=== PATIENT | female | born 1950 | race African-American/Black ===

== ENCOUNTER 2019-10-27 11:10 | Outpatient (CLI) | payer MEDICARE, SELFPAY ==
[2019-10-27 11:32] LABS: Hematocrit 36.3 % (37.0-47.0); Hemoglobin 11.5 g/dL (12.0-15.0)
[2019-10-27 11:41] LABS: Hemoglobin A1C 7.3 % (<5.7)
[2019-10-27 11:45] LABS: Albumin Level 4.3 g/dL (3.5-5.1); Estimated Glomerular Filt Rate 60; Glucose 107 mg/dL (65-105)
== END 2019-10-27 11:11 | disposition home or self-care (01) ==
LOC: ANHLAB 11:17
PROVIDERS: Visit Provider Orthopaedic Surgery
DX: Z01.818 Encounter for other preprocedural examination (principal); M17.11 Unilateral primary osteoarthritis, right knee
CPT/HCPCS: 36415; 82040; 82565; 82947; 83036; 85014; 85018

== ENCOUNTER 2020-03-29 14:02 | Outpatient (CLI) | payer MEDICARE, SELFPAY ==
[2020-03-29 15:29] LABS: Basophils Absolute Auto 0.1 K/mm3 (0.0-0.1); Eosinophils Absolute Auto 0.2 K/mm3 (0-0.3); Eosinophils Percent Auto 3.6 % (0-4.4); Hematocrit 34.7 % (37.0-47.0); Hemoglobin 10.9 g/dL (12.0-15.0); Immature Granulocyte Absolute 0.02 K/mm3 (0.00-0.031); Immature Granulocyte Percent A 0.3 % (0-0.5); Lymphocytes Absolute Auto 2.11 K/mm3 (0.9-3.2); Lymphocytes Percent Auto 34.4 % (18.3-44.2); Mean Corpuscular HGB Conc 31.4 g/dl (32-36); Mean Corpuscular Hemoglobin 31.8 pg (26-34); Mean Corpuscular Volume 101.2 fl (80-100); Mean Platelet Volume 9.9 fl (7.4-10.4); Monocytes Absolute Auto 0.5 K/mm3 (0.1-0.6); Monocytes Percent Auto 8.8 % (2.6-8.5); Neutrophils Absolute Auto 3.2 K/mm3 (1.3-6.7); Neutrophils Percent Auto 51.9 % (45.5-73.1); Platelet Count Result 377 k/mm3 (150-375); Red Blood Count 3.43 M/mm3 (4.2-5.4); Red Cell Distribution Width 13.4 % (11.5-14.5); White Blood Count 6.1 K/mm3 (4.5-10.0)
[2020-03-29 15:40] LABS: Albumin Level 4.2 g/dL (3.5-5.1); Urine Cotinine NEGATIVE
[2020-03-29 15:44] LABS: Blood Urea Nitrogen 15 mg/dL (7-17); Calcium 9.3 mg/dL (8.4-10.2); Carbon Dioxide 27 mmol/L (22-30); Chloride 106 mmol/L (98-107); Estimated Glomerular Filt Rate > 60; Glucose 96 mg/dL (65-105); Hemoglobin A1C 7.3 % (<5.7); Potassium 4.1 mmol/L (3.4-5.0); Sodium 140 mmol/L (137-145)
== END 2020-03-29 14:03 | disposition home or self-care (01) ==
LOC: ANHSURGERY 14:06
PROVIDERS: Anesthesiology; PCP Family Medicine; Visit Provider Orthopaedic Surgery
DX: Z01.818 Encounter for other preprocedural examination (principal); M17.11 Unilateral primary osteoarthritis, right knee; E11.9 Type 2 diabetes mellitus without complications
CPT/HCPCS: 36415; 80048; 80307; 82040; 83036; 85025; 87081

== ENCOUNTER 2020-04-28 01:33 | Outpatient (CLI) | payer MEDICARE, SELFPAY ==
[2020-04-28 18:01] LABS: SARS-CoV-2 RNA PCR Negative
== END 2020-04-28 01:34 | disposition home or self-care (01) ==
LOC: ANHCOVIDDT 01:33
PROVIDERS: PCP Family Medicine; Visit Provider Orthopaedic Surgery
DX: Z01.812 Encounter for preprocedural laboratory examination (principal); Z20.828 Contact with and (suspected) exposure to other viral communicable diseases
CPT/HCPCS: 87635; C9803; U0003

== ENCOUNTER 2020-05-01 03:40 | Day surgery (SDC) | payer MEDICARE, SELFPAY ==
[2020-03-29 14:17] VITALS: BP 166/92; PULSE 84; RESP 20; TEMP 37; O2SAT 99; BMI 30.9
--- NOTE | 2020-04-30 13:58 | WPDANESEPPF ---
Anes - Initial Pre Proc Eval Procedure: Operation Date: 05/01/20 13:30 Proposed Procedures p Right Total Knee Arthroplasty - Ori Griffiths MD Date/Time: 04/30/20 13:58 Surgeon: Ori Griffiths MD Pre Op Diagnosis: OA Right Knee Patient Data Age: 69 Gender: F Height: 1.74 m Weight: 93.5 kg Last Vital Signs Temp 37.0 C 03/29/20 14:17 Pulse 84 03/29/20 14:17 Resp 20 03/29/20 14:17 BP 166/92 H 03/29/20 14:17 Pulse Ox 99 03/29/20 14:17 Allergies Allergy/AdvReac Type Severity Reaction Status Date / Time VANE Inhibitors Allergy Unknown Cough Verified 03/29/20 14:33 Home Medications Medication Instructions Recorded Confirmed Type acetaminophen 325 mg tablet 650 mg PO Q6H PRN 09/19/19 04/23/20 History ascorbate calcium (vitamin C) 500 1,000 mg PO BID 09/19/19 04/23/20 History mg tablet baclofen 10 mg tablet 10 mg PO DAILY 09/19/19 04/23/20 History cholecalciferol (vitamin D3) 50 2,000 unit PO DAILY 09/19/19 04/23/20 History mcg (2,000 unit) tablet fluticasone propionate 50 1 spray NASAL DAILY 09/19/19 04/23/20 History mcg/actuation nasal spray,suspension gabapentin 600 mg tablet 600 mg PO TID 09/19/19 04/23/20 History ketoconazole 2 % topical cream 1 applic TOPICAL DAILY 09/19/19 04/23/20 History linagliptin 5 mg tablet 5 mg PO QAM 09/19/19 04/23/20 History meloxicam 15 mg tablet 15 mg PO DAILY 09/19/19 04/23/20 History metformin 1,000 mg tablet,extended 1,000 mg PO HS 09/19/19 04/23/20 History release 24hr montelukast 10 mg tablet 10 mg PO DAILY 09/19/19 04/23/20 History multivitamin 1 cap PO DAILY 09/19/19 04/23/20 History olmesartan 40 1 tablet PO DAILY 09/19/19 04/23/20 History mg-hydrochlorothiazide 25 mg tablet turmeric root extract 500 mg 500 mg PO BID 09/19/19 04/23/20 History capsule vitamin B complex 1 tablet PO DAILY 09/19/19 04/23/20 History calcium wme-qvc-S8-Zn-telescope repairer-jarno 1 tablet PO DAILY 03/29/20 04/23/20 History insulin detemir U-100 [Levemir 35 unit SUBCUT HS 03/29/20 04/23/20 History FlexTouch U-100 Insuln] magnesium 966 mg PO DAILY 03/29/20 04/23/20 History metoprolol succinate 50 mg PO DAILY 03/29/20 04/23/20 History omeprazole 20 mg PO DAILY 03/29/20 04/23/20 History rosuvastatin 20 mg PO HS 03/29/20 04/23/20 History PMFSH Past Medical History Medical History (Updated 04/30/20 @ 14:00 by Jake Alberto MD) Arthritis Back pain Diabetes Gastroesophageal reflux disease Hypercholesterolemia Hypertension Obesity JEANNE (obstructive sleep apnea) Osteoarthritis of right knee Surgical History Surgical History H/O section (~1981) Social History Social History Smoking status: Never smoker Alcohol intake: current Substance use: current Substance use type: marijuana Other substance usage details: OCCASIONALLY ONE HIT IN THE AM Spiritual care concerns: No Anes - Eval Final PreProcedure Day of Procedure 04/30/20 13:58 Patient weight: obese Heart: regular rate and rhythm Lungs: clear to auscultation and normal air movement Airway: Mallampati scale class II Neurological: alert and oriented Last oral intake: >/= 8 hours ASA classification: III Emergent: no Anesthetic plan: proceed Anesthesia type and monitoring: general LMA Informed Consent: The patient's anesthetic plan and its attendant risks and benefits were discussed with the patient/family/POA. Questions were solicited and answers provided to the satisfaction of the patient/family/POA.
[2020-05-01] VITALS (11 sets, daily range): BP systolic 124–163; BP diastolic 63–88; PULSE 80–99; RESP 10–18; TEMP 35.9–37; O2SAT 98–100
--- NOTE | ~2020-05-01 | XR_ITS ---
EXAMINATION: XR knee RT 2V DATE: 05/01/2020 16:19 INDICATION: Postoperative evaluation following right total knee arthroplasty. TECHNIQUE: Anteroposterior and lateral views of the right knee were obtained. COMPARISON: None. FINDINGS: Right total knee arthroplasty with patellar resurfacing appears well seated and in near anatomic alig nment. No fractures identified. Expected postoperative subcutaneous and intra-articular gas. IMPRESSION: 1. Right total knee arthroplasty, negative for postoperative purposes. Reviewed, dictated and finalized at location A.
--- NOTE | 2020-05-01 07:18 | WPDHPUPDATE1 ---
History and Physical Update Update Date/Time: 05/01/20 07:18 History and Physical has been reviewed, including an updated exam of the patient. There are NO changes in the patient's condition. Risks, benefits, and alternatives have been discussed and questions answered. Patient agrees to proceed with procedure.
[2020-05-01] MEDS: LACTATED RINGERS 1,000 ML 30 ML IV CONT (12:25)
[2020-05-01 12:27] LABS: Glucose Point of Care 117 (65-105)
[2020-05-01] MEDS: ACETAMINOPHEN 500 MG TABLET 1000 MG PO (12:45)
[2020-05-01] MEDS: KETOROLAC 15 MG/ML VIAL (*BKC) IV PUSH (12:47)
--- NOTE | 2020-05-01 13:23 | WPDANESEPPF ---
Anes - Initial Pre Proc Eval Procedure: Operation Date: 05/01/20 13:30 Proposed Procedures p Right Total Knee Arthroplasty - Ori Griffiths MD Date/Time: 05/01/20 13:23 Surgeon: Ori Griffiths MD Pre Op Diagnosis: OA Right Knee Patient Data Age: 69 Gender: F Height: 5 ft 8.5 in Weight: 89.6 kg Last Vital Signs Temp 36.2 C L 05/01/20 12:34 Pulse 80 05/01/20 12:34 Resp 12 05/01/20 12:34 BP 124/69 05/01/20 12:34 Pulse Ox 100 05/01/20 12:34 Allergies Allergy/AdvReac Type Severity Reaction Status Date / Time VANE Inhibitors Allergy Unknown Cough Verified 05/01/20 12:04 Home Medications Medication Instructions Recorded Confirmed Type ascorbate calcium (vitamin C) 500 1,000 mg PO DAILY 09/19/19 05/01/20 History mg tablet baclofen 10 mg tablet 10 mg PO DAILY 09/19/19 05/01/20 History cholecalciferol (vitamin D3) 50 2,000 unit PO DAILY 09/19/19 05/01/20 History mcg (2,000 unit) tablet fluticasone propionate 50 1 spray NASAL PRN 09/19/19 05/01/20 History mcg/actuation nasal spray,suspension gabapentin 600 mg tablet 600 mg PO TID 09/19/19 05/01/20 History ketoconazole 2 % topical cream 1 applic TOPICAL DAILY 09/19/19 05/01/20 History linagliptin 5 mg tablet 5 mg PO QAM 09/19/19 05/01/20 History meloxicam 15 mg tablet 15 mg PO DAILY 09/19/19 05/01/20 History metformin 1,000 mg tablet,extended 2,000 mg PO HS 09/19/19 05/01/20 History release 24hr montelukast 10 mg tablet 10 mg PO DAILY 09/19/19 05/01/20 History multivitamin 1 cap PO DAILY 09/19/19 05/01/20 History olmesartan 40 1 tablet PO DAILY 09/19/19 05/01/20 History mg-hydrochlorothiazide 25 mg tablet turmeric root extract 500 mg 500 mg PO BID 09/19/19 05/01/20 History capsule vitamin B complex 1 tablet PO DAILY 09/19/19 05/01/20 History calcium hsr-teg-B1-Zn-advertising copywriter-jaron 1 tablet PO DAILY 03/29/20 05/01/20 History insulin detemir U-100 [Levemir 35 unit SUBCUT HS 03/29/20 05/01/20 History FlexTouch U-100 Insuln] magnesium 966 mg PO DAILY 03/29/20 05/01/20 History metoprolol succinate 50 mg PO DAILY 03/29/20 05/01/20 History omeprazole 20 mg PO DAILY 03/29/20 05/01/20 History rosuvastatin 20 mg PO HS 03/29/20 05/01/20 History Laboratory Tests 05/01/20 12:25 POC Capillary Glucose 117 mg/dl H mg/dl (65-105) Patient hx anesthesia problems: none Family hx anesthesia problems: none PMFSH Past Medical History Medical History Arthritis Back pain Diabetes Gastroesophageal reflux disease Hypercholesterolemia Hypertension Obesity JEANNE (obstructive sleep apnea) Osteoarthritis of right knee Surgical History Surgical History H/O section (~1981) Social History Social History Smoking status: Never smoker Alcohol intake: current Alcohol use details: OCCASIONAL Substance use: current Substance use type: marijuana Other substance usage details: OCCASIONALLY ONE HIT IN THE AM Spiritual care concerns: No Anes - Eval Final PreProcedure Day of Procedure 05/01/20 13:23 Patient weight: overweight Heart: regular rate and rhythm Lungs: clear to auscultation Airway: Mallampati scale class II Neurological: alert and oriented Last oral intake: >/= 8 hours ASA classification: III Emergent: no Anesthetic plan: proceed Anesthesia type and monitoring: general LMA and standard monitoring Informed Consent: The patient's anesthetic plan and its attendant risks and benefits were discussed with the patient/family/POA. Questions were solicited and answers provided to the satisfaction of the patient/family/POA.
[2020-05-01] MEDS: TRANEXAMIC ACID 1,000MG/ISO100 1,000 MG/100 ML BAG 200 MG IVPB (13:32)
[2020-05-01] MEDS: ceFAZolin 2 GM/D5W 50 ML 2 GM/50 ML BAG IVPB (13:50)
--- NOTE | 2020-05-01 13:50 | WPDANESPNB ---
Anes - Peripheral Nerve Block Date/Time: 05/01/20 13:50 I have discussed with the patient/family/POA the placement of a peripheral nerve block for post-operative pain management, including associated risks, benefits, complications, and side effects. Alternative methods of post-operative analgesia were detailed. Questions were solicited and answers provided to the satisfaction of the patient/family/POA. Time-Out: A pre-procedural Time-Out was completed immediately before starting the procedure and confirmed: Patient Identification, Site, Procedure, Patient Position and the Availability of Requisite Equipment. Clinical Indications: Acute post-operative pain management requested by the operative surgeon. Nerve Block Insertion Note Anes-nerve block: adductor canal right Patient position: supine Skin prep: chlorhexidine Needle: 22 gauge, stimulating, insulated echogenic needle. Needle length: 80 mm Technique: ultrasound Technique comment: mid 2mg fent 100mcg Injectate: bupivacaine 0.5% with epi 5 mcg/ml (30ml) Observations: tolerated well Complications: none Procedure start time:: 1330 Procedure end time:: 1336
[2020-05-01 16:15] LABS: Glucose Point of Care 162 (65-105)
--- NOTE | 2020-05-01 16:35 | PM.PROC ---
Procedure Note - Detailed Date of procedure: 05/01/20 Pre-op diagnosis: OA Right Knee Post-op diagnosis: same Procedure performed: Total knee arthroplasty, right Description of procedure: Valgus deformity. Minimal lateral release required. An 8 mm distal femoral cut was taken initially at 6?. The lateral condyle was very hypoplastic. After gap balancing, 2 extra mm was required. The PCL ligament was well preserved. Bone quality was excellent. The femur was placed at 3? external rotation. Implants: Ginger Triathlon size 5 press-fit femur, size 5 cemented low-profile tibia, 11 mm CS polyethylene insert, 38mm asymmetric metal backed patellar component. Anesthesia: GETA and regional (subsartorial nerve block) Surgeon: Ori Griffiths MD Estimated blood loss (mL): 50 Drains: No Complications: None Condition: stable Disposition: PACU Findings: OPERATIVE DETAILS: The patient was given a nerve block preoperatively, and then brought to the operating room. A general anesthetic was administered. The leg was prepped and draped in the usual sterile fashion. The limb was elevated and the tourniquet inflated to 300 mmHg during initial exposure and Cementation. A longitudinal incision was created along the medial border of the patella and patellar tendon, and a minimally invasive optimized mid-vastus approach to the knee was performed. No medial release was taken. The knee was then flexed. The osteophytes were carefully removed. The intramedullary guide was placed in the femoral canal. The distal femoral resection was then taken with the oscillating saw. The collateral ligaments were carefully protected. The tibia was carefully exposed. The jig was applied, and the proximal tibia was resected according to preoperative plan. The knee was balanced in extension. No further releases were done initially. Later the popliteus tendon was excised. The anterior cruciate ligament and meniscal remnants were removed. The posterior cruciate ligament was preserved. The patella was measured. Patellar resection was carried out with the oscillating saw. The lug holes drilled. The femur was sized and rotation assessed using a combination of gap balancing, posterior referencing, and the AP axis. The 4 in 1 cutting block was used to finish the femoral cuts after equal gaps were assured. The lug holes were drilled. The osteophytes were carefully removed from the back of the knee. The knee was copiously irrigated with antibiotic solution periodically throughout the procedure. The meniscal remnants were removed. The spacer block was used to confirm equal flexion and extension gaps. After removal of the popliteus tendon, balancing was very good. The tibia was sized and broached. The bony surfaces were prepared for cementing with pulsatile lavage. The real tibial component was cemented into position followed by press fitting the femoral component. Excess cement was carefully removed. The patella component was press-fit. Patellar tracking was carefully assessed. No additional releases were required. The wound was closed with #1 Vycril suture, #2 Quill suture, 0-Quill suture, and 2-0 Quill suture followed by Steri-Strips. A sterile bulky dressing was applied. Meticulous hemostasis was maintained throughout the procedure. There were no complications. The patient was extubated and brought to the recovery room in stable condition after the application of sterile dressing with Evaristo bandage.
--- NOTE | 2020-05-01 17:00 | SUR.PHASEI ---
1700 SBAR FAXED FLOOR NOTIFIED
[2020-05-01] MEDS: DOCUSATE SODIUM 100 MG CAPSULE PO (17:57)
[2020-05-01] MEDS: GABAPENTIN 300 MG CAPSULE 600 MG PO (18:02)
[2020-05-01] MEDS: ASPIRIN 81 MG ENTERIC TABLET PO (18:03)
[2020-05-01 19:02] LABS: Glucose Point of Care 141 (65-105)
[2020-05-01] MEDS: INSULIN DETEMIR 100 UNITS/ML 35 UNITS SUB-Q (20:43)
[2020-05-01] MEDS: ROSUVASTATIN 10 MG TABLET 20 MG PO (20:43)
[2020-05-01] MEDS: metFORMIN HCL XR 500 MG TAB.SR.24H 2000 MG PO (20:43)
--- NOTE | 2020-05-02 00:03 | PM.IMCN ---
Assessment and Plan Assessment and plan (1) S/P total knee arthroplasty: Qualifiers: Laterality: right Qualified Code(s): Z96.651 - Presence of right artificial knee joint Code(s): Z96.659 - Presence of unspecified artificial knee joint Status: Acute Assessment and Plan: Continue ortho recommendations. Pain control per ortho. (2) Diabetes: Qualifiers: Diabetes mellitus type: type 2 Diabetes mellitus exterminator helper insulin use: with prison use Diabetes mellitus complication status: without complication Qualified Code(s): E11.9 - Type 2 diabetes mellitus without complications; Z79.4 - [facility] (current) use of insulin Code(s): E11.9 - Type 2 diabetes mellitus without complications Status: Chronic Assessment and Plan: Accuchecks, SSI coverage, Hypoglycemic protocol. Continue metformin and Levemir Insulin. (3) Hypertension: Qualifiers: Hypertension type: unspecified Qualified Code(s): I10 - Essential (primary) hypertension Code(s): I10 - Essential (primary) hypertension Status: Chronic Assessment and Plan: Monitor blood pressure. Continue Olmesartan and metoprolol. (4) Hypercholesterolemia: Code(s): E78.00 - Pure hypercholesterolemia, unspecified Status: Chronic Assessment and Plan: Continue Crestor PO. (5) Gastroesophageal reflux disease: Qualifiers: Esophagitis presence: esophagitis presence not specified Qualified Code(s): K21.9 - Gastro-esophageal reflux disease without esophagitis Code(s): K21.9 - Gastro-esophageal reflux disease without esophagitis Status: Chronic Assessment and Plan: Continue PPI therapy. Additional Plan Date of service was 05/01/2020 at 21:00 hrs. HPI Data of Consult Consult date: 05/02/20 Requesting Physician: Ori Griffiths MD Primary Care Provider: Darryl CollazoMD Consult Narrative Narrative: Thank you for consulting us to see this 69 year old female who underwent a total right knee arthroplasty. Currently she is doing well and her right knee pain is well controlled. She denies any fevers, chills, shortness of breath, chest pain, nausea, vomiting, abdominal pain, dysuria, or chest pain. No other complaints. Review of Systems Review of Systems: All systems reviewed & are unremarkable except as noted in HPI and below PMFSH Past Medical History Medical History Arthritis Back pain Diabetes Gastroesophageal reflux disease Hypercholesterolemia Hypertension Obesity JEANNE (obstructive sleep apnea) Osteoarthritis of right knee Surgical History Surgical History H/O section (~1981) Family History Family History Other Leukemia Diabetes mellitus Social History Social History Smoking status: Never smoker Alcohol intake: current Alcohol use details: OCCASIONAL Substance use: current Substance use type: marijuana Other substance usage details: OCCASIONALLY ONE HIT IN THE AM Spiritual care concerns: No Meds Home Medications and Allergies Home Medications Medication Instructions Recorded Confirmed Type ascorbate calcium (vitamin C) 500 1,000 mg PO DAILY 09/19/19 05/01/20 History mg tablet baclofen 10 mg tablet 10 mg PO DAILY 09/19/19 05/01/20 History cholecalciferol (vitamin D3) 50 2,000 unit PO DAILY 09/19/19 05/01/20 History mcg (2,000 unit) tablet fluticasone propionate 50 1 spray NASAL PRN 09/19/19 05/01/20 History mcg/actuation nasal spray,suspension gabapentin 600 mg tablet 600 mg PO TID 09/19/19 05/01/20 History ketoconazole 2 % topical cream 1 applic TOPICAL DAILY 09/19/19 05/01/20 History linagliptin 5 mg tablet 5 mg PO QAM 09/19/1905/01
[2020-05-02 02:03] VITALS: BP 136/66; PULSE 87; RESP 18; TEMP 35.8; O2SAT 98
[2020-05-02 05:09] LABS: Basophils Percent Auto 0.4 % (0.2-1.2); Hematocrit 28.6 % (37.0-47.0); Immature Granulocyte Absolute 0.04 K/mm3 (0.00-0.031); Immature Granulocyte Percent A 0.4 % (0-0.5); Lymphocytes Percent Auto 14.2 % (18.3-44.2); Mean Corpuscular HGB Conc 31.5 g/dl (32-36); Mean Corpuscular Hemoglobin 31.7 pg (26-34); Mean Corpuscular Volume 100.7 fl (80-100); Mean Platelet Volume 10.2 fl (7.4-10.4); Monocytes Absolute Auto 0.7 K/mm3 (0.1-0.6); Monocytes Percent Auto 6.9 % (2.6-8.5); Neutrophils Absolute Auto 7.7 K/mm3 (1.3-6.7); Neutrophils Percent Auto 78.1 % (45.5-73.1); Platelet Count Result 322 k/mm3 (150-375); Red Blood Count 2.84 M/mm3 (4.2-5.4); Red Cell Distribution Width 13.3 % (11.5-14.5); White Blood Count 9.9 K/mm3 (4.5-10.0)
[2020-05-02 06:00] VITALS: BP 133/61; PULSE 80; RESP 16; TEMP 36.3; O2SAT 100
[2020-05-02 06:01] LABS: Anion Gap 7 mmol/L (8-16); Blood Urea Nitrogen 23 mg/dL (7-17); Calcium 8.6 mg/dL (8.4-10.2); Carbon Dioxide 24 mmol/L (22-30); Chloride 105 mmol/L (98-107); Estimated CRCL calculation 51 ml/min; Estimated Glomerular Filt Rate 60; Glucose 191 mg/dL (65-105); Potassium 4.3 mmol/L (3.4-5.0); Sodium 136 mmol/L (137-145)
[2020-05-02 07:46] LABS: Glucose Point of Care 137 (65-105)
[2020-05-02] MEDS: MELOXICAM 7.5 MG TABLET 15 MG PO (09:00)
[2020-05-02] MEDS: BACLOFEN 10 MG TABLET PO (09:00)
[2020-05-02] MEDS: MONTELUKAST SODIUM 10 MG TABLET PO (09:00)
[2020-05-02] MEDS: DOCUSATE SODIUM 100 MG CAPSULE PO (09:00)
[2020-05-02] MEDS: PANTOPRAZOLE 40 MG TABLET PO (09:00)
[2020-05-02] MEDS: OLMESARTAN MEDOXOMIL 20 MG TABLET 40 MG PO (09:00)
[2020-05-02 09:01] VITALS: PULSE 90
[2020-05-02] MEDS: GABAPENTIN 300 MG CAPSULE 600 MG PO ×2 (09:01→14:05)
[2020-05-02] MEDS: VITAMIN B COMPLEX CAPSULE 1 CAP PO (09:01)
[2020-05-02] MEDS: METOPROLOL SUCCINATE EXT REL 50 MG TABCR PO (09:01)
[2020-05-02] MEDS: CHOLECALCIFEROL 1,000 UNITS TABLET 2000 UNITS PO (09:02)
[2020-05-02] MEDS: ASPIRIN 81 MG ENTERIC TABLET PO (09:02)
[2020-05-02] MEDS: MULTIVITAMINS THERAPEUTIC TAB (*BKC) 1 TABLET PO (09:02)
[2020-05-02] MEDS: ASCORBIC ACID 500 MG TABLET 1000 MG PO (09:02)
[2020-05-02] MEDS: MICONAZOLE NITRATE 2% CREAM 30 GM TUBE 1 APPLIC TOPICAL (09:03)
--- NOTE | 2020-05-02 09:04 | WPDANESPN ---
Anes - Prog Note Post-Op Date/Time: 05/02/20 09:04 Cardiovascular status: normal Respiratory status: normal Airway patency: baseline Mental status: baseline Post-Op hydration status: normal Vital Signs: Last Vital Signs Temp 36.3 C L 05/02/20 06:00 Pulse 80 05/02/20 06:00 Resp 16 05/02/20 06:00 BP 133/61 05/02/20 06:00 Pulse Ox 100 05/02/20 06:00 I/O: Intake & Output 05/01/20 05/02/20 05/02/20 23:59 07:59 15:59 Intake Total 450 350 Output Total 500 Balance 450 -150 Laboratory Tests 05/02/20 04:45 05/02/20 04:45 05/01/20 05/01/20 05/01/20 12:23 12:25 16:13 WBC RBC Hgb Hct MCV MCH MCHC RDW Plt Count MPV Immature Gran % (Auto) Neut % (Auto) Lymph % (Auto) [place] % (Auto) Eos % (Auto) Baso % (Auto) Lymph # (Auto) [place] # (Auto) Eos # (Auto) Baso # (Auto) Abs Immat Gran (auto) Absolute Neuts (auto) Absolute Nucleated RBC Nucleated RBC % Sodium Potassium Chloride Carbon Dioxide Anion Gap BUN Creatinine Estim Creat Clear Calc Estimated GFR Glucose POC Capillary Glucose 117 H 162 H Calcium Blood Type O Negative Antibody Screen Negative 05/01/20 05/02/20 05/02/20 18:59 04:45 04:45 WBC 9.9 RBC 2.84 L Hgb 9.0 L Hct 28.6 L MCV 100.7 H MCH 31.7 MCHC 31.5 L RDW 13.3 Plt Count 322 MPV 10.2 Immature Gran % (Auto) 0.4 Neut % (Auto) 78.1 H Lymph % (Auto) 14.2 L [place] % (Auto) 6.9 Eos % (Auto) 0.0 Baso % (Auto) 0.4 Lymph # (Auto) 1.40 [place] # (Auto) 0.7 H Eos # (Auto) 0.0 Baso # (Auto) 0.0 Abs Immat Gran (auto) 0.04 H Absolute Neuts (auto) 7.7 H Absolute Nucleated RBC 0.0 Nucleated RBC % 0.0 Sodium 136 L Potassium 4.3 Chloride 105 Carbon Dioxide 24 Anion Gap 7 L BUN 23 H Creatinine 1.10 H Estim Creat Clear Calc 51 Estimated GFR 60 Glucose 191 H POC Capillary Glucose 141 H Calcium 8.6 Blood Type Antibody Screen 05/02/20 07:44 WBC RBC Hgb Hct MCV MCH MCHC RDW Plt Count MPV Immature Gran % (Auto) Neut % (Auto) Lymph % (Auto) [place] % (Auto) Eos % (Auto) Baso % (Auto) Lymph # (Auto) [place] # (Auto) Eos # (Auto) Baso # (Auto) Abs Immat Gran (auto) Absolute Neuts (auto) Absolute Nucleated RBC Nucleated RBC % Sodium Potassium Chloride Carbon Dioxide Anion Gap BUN Creatinine Estim Creat Clear Calc Estimated GFR Glucose POC Capillary Glucose 137 H Calcium Blood Type Antibody Screen Post-procedural complaints: none Patient Feedback: Patient satisfied with anesthetic care.
[2020-05-02 10:00] VITALS: BP 130/71; PULSE 85; RESP 18; TEMP 36.2; O2SAT 100
--- NOTE | 2020-05-02 10:54 | PM.IMPN ---
Progress Note: A&P Assessment and Plan (1) S/P total knee arthroplasty: Qualifiers: Laterality: right Qualified Code(s): Z96.651 - Presence of right artificial knee joint Code(s): Z96.659 - Presence of unspecified artificial knee joint Status: Acute Assessment and Plan: POD [address] Griffith[address]; patient doing well today. Pain tolerable. Post op care, pain management, PT/OT, DVT ppx per primary service Okay for discharge from medical standpoint. Will sign off, but call with any questions (2) Diabetes: Qualifiers: Diabetes mellitus type: type 2 Diabetes mellitus intermediate manager insulin use: with intermediate manager use Diabetes mellitus complication status: without complication Qualified Code(s): E11.9 - Type 2 diabetes mellitus without complications; Z79.4 - intermediate manager (current) use of insulin Code(s): E11.9 - Type 2 diabetes mellitus without complications Status: Chronic Assessment and Plan: BGL in 100s today. A1c 7.3 on 03/29/20 Accuchecks, SSI coverage, Hypoglycemic protocol, diabetic diet during stay Continue metformin and Levemir Insulin. Monitor BGL (3) Hypertension: Qualifiers: Hypertension type: unspecified Qualified Code(s): I10 - Essential (primary) hypertension Code(s): I10 - Essential (primary) hypertension Status: Chronic Assessment and Plan: BP appears to be well controlled. BP this morning 130s sys Monitor blood pressure. Continue Olmesartan and metoprolol. (4) Hypercholesterolemia: Code(s): E78.00 - Pure hypercholesterolemia, unspecified Status: Chronic Assessment and Plan: Continue Crestor PO. (5) Gastroesophageal reflux disease: Qualifiers: Esophagitis presence: esophagitis presence not specified Qualified Code(s): K21.9 - Gastro-esophageal reflux disease without esophagitis Code(s): K21.9 - Gastro-esophageal reflux disease without esophagitis Status: Chronic Assessment and Plan: Continue PPI therapy. Subjective Date/time seen: 05/02/20 10:54 Interval history: Patient is a 69 yo F with history of HTN, DMII, and osteoarthritis who is here for RTKA per Dr. Griffiths POD1; Hospitalist service consulted for further management of comorbid conditions. Patient is feeling welll today. Some soreness in right knee after going through therapy this morning, but pain manageable. Calf tightness in right, but no swelling/warmth. She is tolerating PO well. No BM, but passing flatus. No other complaints. Denies f/c/s, headaches, dizziness, lightheadedness, changes in v/h, cp/palpitations, sob/cough, n/v/d/c, abd pain, dysuria, hematuria, cloudy urine, calf swelling. Review of Systems Review of Systems: All systems reviewed & are unremarkable except as noted in HPI and below Exam Narrative: Exam Narrative: General: Patient resting in semi-ma's in bed in no acute distress. HEENT: Normocephalic, EOMI, oral mucosa moist. Cardiovascular: Rate and rhythm are regular. No notable murmur, rub, or gallop. Respiratory: Lungs clear to auscultation all aleman. Non-labored breathing. Abdomen: Soft, non-tender, non-distended, BS not appreciated Extremities: Peripheral pulses intact. right knee with ice pack. NTTP b/l calves Neuro: No focal neurological deficits. Speech is clear. Objective Data Vital Signs Vital Signs: Last Vital Signs Temp 97.3 F L 05/02/20 06:00 Pulse 90 05/02/20 09:01 Resp 16 05/02/20 06:00 BP 133/61 05/02/20 06:00 Pulse Ox 100 05/02/20 06:00 Intake/Output Intake/Output: Intake & Output 04/29/20 04/30/20 05/01/2019/20 23:59 23:59 23:59 23:59 Intake Total 600 350 Output Total 500 Balance 600 -150 Meds/Results Medications:
--- NOTE | 2020-05-02 11:47 | PM.DS ---
DS: Admitting Diagnosis Admitting Diagnosis Admitting Diagnosis: OA Right Knee DS: Discharge Diagnosis Discharge Diagnosis (1) S/P total knee arthroplasty: Qualifiers: Laterality: right Qualified Code(s): Z96.651 - Presence of right artificial knee joint Code(s): Z96.659 - Presence of unspecified artificial knee joint Status: Acute DS: Summary Hospital Course Reason for hospitalization: Total knee arthroplasty. Hospital Course: Tolerated surgery well. Progressed appropriately with therapy. Status at Discharge Functional status at discharge: uses cane/walker Overall status at discharge: patient is progressing back to baseline Time Spent with Patient Time attestation: Total time spent providing and/or coordinating discharge services: Exam Const: General: no acute distress Resp: Effort & Inspection: normal respiratory effort Skin: Other: Wound healing well. Mepilex dressing intact. No hematoma or drainage. Neuro: Motor exam (neuro): 5/5 motor strength present throughout Sensory Exam: normal sensation Psych: Mental Status: mental status grossly normal Speech and movement: Normal speech and movement present DS: Data Data Completed and Pending Labs on day of discharge: Labs from last 24 hours 05/02/20 05/02/20 05/02/20 07:44 04:45 04:45 WBC 9.9 RBC 2.84 L Hgb 9.0 L Hct 28.6 L MCV 100.7 H MCH 31.7 MCHC 31.5 L RDW 13.3 Plt Count 322 MPV 10.2 Immature Gran % (Auto) 0.4 Neut % (Auto) 78.1 H Lymph % (Auto) 14.2 L [place] % (Auto) 6.9 Eos % (Auto) 0.0 Baso % (Auto) 0.4 Lymph # (Auto) 1.40 [place] # (Auto) 0.7 H Eos # (Auto) 0.0 Baso # (Auto) 0.0 Abs Immat Gran (auto) 0.04 H Absolute Neuts (auto) 7.7 H Absolute Nucleated RBC 0.0 Nucleated RBC % 0.0 Sodium 136 L Potassium 4.3 Chloride 105 Carbon Dioxide 24 Anion Gap 7 L BUN 23 H Creatinine 1.10 H Estim Creat Clear Calc 51 Estimated GFR 60 Glucose 191 H POC Capillary Glucose 137 H Calcium 8.6 Blood Type Antibody Screen 05/01/20 05/01/20 05/01/20 18:59 16:13 12:25 WBC RBC Hgb Hct MCV MCH MCHC RDW Plt Count MPV Immature Gran % (Auto) Neut % (Auto) Lymph % (Auto) [place] % (Auto) Eos % (Auto) Baso % (Auto) Lymph # (Auto) [place] # (Auto) Eos # (Auto) Baso # (Auto) Abs Immat Gran (auto) Absolute Neuts (auto) Absolute Nucleated RBC Nucleated RBC % Sodium Potassium Chloride Carbon Dioxide Anion Gap BUN Creatinine Estim Creat Clear Calc Estimated GFR Glucose POC Capillary Glucose 141 H 162 H 117 H Calcium Blood Type Antibody Screen 05/01/20 12:23 WBC RBC Hgb Hct MCV MCH MCHC RDW Plt Count MPV Immature Gran % (Auto) Neut % (Auto) Lymph % (Auto) [place] % (Auto) Eos % (Auto) Baso % (Auto) Lymph # (Auto) [place] # (Auto) Eos # (Auto) Baso # (Auto) Abs Immat Gran (auto) Absolute Neuts (auto) Absolute Nucleated RBC Nucleated RBC % Sodium Potassium Chloride Carbon Dioxide Anion Gap BUN Creatinine Estim Creat Clear Calc Estimated GFR Glucose POC Capillary Glucose Calcium Blood Type O Negative Antibody Screen Negative Discharge Plan Discharge Patient Disposition: Home, Self-Care Discharge Instructions: See instruction sheet. Patient Instructions: Precautions after Total Joint Replacement Surgery (DC) Follow-up/Referrals: Ori Griffiths MD [Physician] - Discharge Medications: New oxycodone-acetaminophen 5-325 mg tablet 1 - 2 tablet PO Q4-6H MDD 8 tablets PRN (Reason: pain) Qty: 30 RF: 0 Continued metformin 1,000 mg tablet extended release 24hr 2,000 mg PO HS RF: 0 olmesartan-hydrochlorothiazide [Benicar HCT] 40-25 mg tablet 1 tablet PO DAILY RF: 0 Tradjenta 5 mg tablet 5 mg PO QAM
[2020-05-02 11:58] LABS: Glucose Point of Care 150 (65-105)
== END 2020-05-02 14:06 | disposition home or self-care (01) ==
LOC: ANHSURGERY 11:25 → ANH2MED 17:18
PROVIDERS: PCP Family Medicine; Visit Provider Orthopaedic Surgery
PROC: (CPT 27447; principal; 2020-05-01 13:30)
DX: M17.11 Unilateral primary osteoarthritis, right knee (principal); E11.9 Type 2 diabetes mellitus without complications; I10 Essential (primary) hypertension; Z79.4 Long term (current) use of insulin; E78.00 Pure hypercholesterolemia, unspecified; K21.9 Gastro-esophageal reflux disease without esophagitis
CPT/HCPCS: 27447; 36415; 73560; 80048; 80307; 82040; 83036; 85025; 86850; 86900; 86901; 87081; 87635; 97110; 97161; 97165; A9270; C1713; C1776; C9803; J0131; J0171; J0690; J1100; J1815; J1885; J2250; J2270; J2405; J2704; J2795; J3010; J7120; U0003